=== PATIENT | female | born 1995 | race Caucasian/White ===

== ENCOUNTER 2018-06-07 15:15 | Emergency (ER) | payer OTHER ==
[~2018-06-07] VITALS: Ht 157.4 cm; Wt 65.8 kg
[2018-06-07 16:54] LABS: BILIRUBIN 1+ (NEGATIVE); BLOOD NEGATIVE (NEGATIVE); CLARITY CLEAR (CLEAR); COLOR YELLOW (YELLOW); GLUCOSE NEGATIVE (NEGATIVE); KETONE 3+ (NEGATIVE); LEUKO ESTERASE NEGATIVE (NEGATIVE); NITRITE NEGATIVE (NEGATIVE); UROBILINOGEN 0.2 E.U./dl (0.2-1.0)
[2018-06-07 17:11] LABS: BACTERIA TRACE; EPITHELIAL CELLS 16-20; WBC 0-2 wbc/hpf (0-5)
[2018-06-07] MEDS ORDERED: KEFLEX500 M1 PO (17:22)
== END 2018-06-07 17:33 | disposition home or self-care (01) ==
LOC: ED 15:15
PROVIDERS: Physician Assistant
DX: O23.41 Unspecified infection of urinary tract in pregnancy, first trimester (principal); B96.89 Other specified bacterial agents as the cause of diseases classified elsewhere; Z3A.01 Less than 8 weeks gestation of pregnancy